=== PATIENT | female | born 1970 | race Two or more races ===

== ENCOUNTER 2018-03-10 12:15 | Outpatient (CLI) | payer BC ==
[2018-03-10 13:18] LABS: BASOPHILS % (AUTO) 0.6 % (0.0-2.0); EOSINOPHILS % (AUTO) 5.4 % (0.0-6.0); HEMATOCRIT 40 % (33-45); HEMOGLOBIN 13.6 g/dL (11.5-14.8); LYMPHOCYTES # (AUTO) 1.3 /CMM (0.8-4.8); LYMPHOCYTES % (AUTO) 27.9 % (20.0-44.0); MEAN CORPUSCULAR HGB CONC 34 g/dl (31.0-36.0); MEAN CORPUSCULAR VOLUME 86 fL (82-100); MONOCYTES # (AUTO) 0.2 /CMM (0.1-1.30); MONOCYTES % (AUTO) 3.3 % (2.0-12.0); NEUTROPHILS % (AUTO) 62.8 % (43.0-81.0); PLATELET COUNT (AUTO) 323 /CMM (150-450); RDW COEFFICIENT OF VARIATION 13.2 (11.5-15.0); RED BLOOD CELL COUNT(AUTO) 4.69 MIL/uL (4.0-5.2); WHITE BLOOD COUNT (AUTO) 4.8 K/uL (4.3-11.0)
[2018-03-10 13:36] LABS: ALBUMIN 3.6 g/dL (3.4-5.0); BILIRUBIN,TOTAL 0.6 mg/dL (0.2-1.0); CALCIUM, SERUM 8.7 mg/dL (8.5-10.1); CREATININE 0.7 mg/dL (0.6-1.3); POTASSIUM 3.8 mmol/L (3.5-5.1); TOTAL PROTEIN, SERUM 7.6 g/dL (6.4-8.2)
[2018-03-10 13:46] LABS: THYROID STIMULATING HORMONE 1.575 uIU/mL (0.358-3.74)
[2018-03-10 13:50] LABS: APPEARANCE,URINE CLEAR (CLEAR); BILIRUBIN,URINE NEGATIVE (NEGATIVE); BLOOD, URINE 2+ Ery/uL (NEGATIVE); COLOR,URINE YELLOW (YELLOW); KETONES,URINE NEGATIVE (NEGATIVE); LEUKOCYTE ESTERASE ,URINE NEGATIVE (NEGATIVE); NITRITE, URINE NEGATIVE (NEGATIVE); PROTEIN,URINE NEGATIVE (NEGATIVE); UGLUCOSE NEGATIVE (NEGATIVE); UROBILINOGEN,URINE 0.2 EU/dL (0.2)
[2018-03-10 14:46] LABS: BACTERIA,URINE Few /HPF (None Seen); SQUAMOUS EPITHELIAL CELL,UR Few /HPF (None Seen); WBC,URINE 0-2 /HPF (0-3)
== END 2018-03-10 23:59 | disposition home or self-care (01) ==
LOC: LAB 12:15
PROVIDERS: ATTEND Legal Medicine
DX: Z00.01 Encounter for general adult medical examination with abnormal findings (principal); E78.5 Hyperlipidemia, unspecified; R79.89 Other specified abnormal findings of blood chemistry
CPT/HCPCS: 36415; 80053-TC; 80061-TC; 81000-TC; 82306; 82728-TC; 82746; 83540-TC; 84443-TC; 85025-TC

== ENCOUNTER 2019-01-11 14:41 | Outpatient (CLI) | payer BC ==
[2019-01-14 19:06] LABS: IMMUNOGLOBULIN E,TOTAL 86 IU/mL (0-100)
== END 2019-01-11 23:59 | disposition home or self-care (01) ==
LOC: LAB 14:41
PROVIDERS: ATTEND Legal Medicine
DX: R22.1 Localized swelling, mass and lump, neck (principal); R06.02 Shortness of breath; J30.9 Allergic rhinitis, unspecified; J34.2 Deviated nasal septum; M41.84 Other forms of scoliosis, thoracic region
CPT/HCPCS: 36415; 70490-TC; 71046; 82785; 86003

== ENCOUNTER 2019-03-05 07:20 | Outpatient (CLI) | payer BC ==
[2019-03-05 07:52] LABS: APPEARANCE,URINE CLEAR (CLEAR); BILIRUBIN,URINE NEGATIVE (NEGATIVE); BLOOD, URINE 3+ Ery/uL (NEGATIVE); COLOR,URINE YELLOW (YELLOW); KETONES,URINE NEGATIVE (NEGATIVE); LEUKOCYTE ESTERASE ,URINE TRACE (NEGATIVE); NITRITE, URINE NEGATIVE (NEGATIVE); PH,URINE 5.5 (5.0-8.0); PROTEIN,URINE NEGATIVE (NEGATIVE); UGLUCOSE NEGATIVE (NEGATIVE); UROBILINOGEN,URINE 0.2 EU/dL (0.2)
[2019-03-05 07:58] LABS: BACTERIA,URINE 1+ /HPF (None Seen); MUCUS,URINE Few /LPF (None Seen); URINE AMORPHOUS URATE Few /HPF (None Seen)
[2019-03-05 08:10] LABS: BASOPHILS # (AUTO) 0.1 /CMM (0.0-0.2); BASOPHILS % (AUTO) 0.9 % (0.0-2.0); EOSINOPHILS % (AUTO) 5.6 % (0.0-6.0); HEMATOCRIT 42 % (33-45); LYMPHOCYTES # (AUTO) 2.5 /CMM (0.8-4.8); LYMPHOCYTES % (AUTO) 32.1 % (20.0-44.0); MEAN CORPUSCULAR HGB CONC 33 g/dl (31.0-36.0); MEAN CORPUSCULAR VOLUME 89 fL (82-100); MONOCYTES # (AUTO) 0.4 /CMM (0.1-1.30); MONOCYTES % (AUTO) 4.7 % (2.0-12.0); NEUTROPHILS # (AUTO) 4.5 /CMM (1.8-8.9); NEUTROPHILS % (AUTO) 56.7 % (43.0-81.0); PLATELET COUNT (AUTO) 279 /CMM (150-450); RED BLOOD CELL COUNT(AUTO) 4.78 MIL/uL (4.0-5.2); WHITE BLOOD COUNT (AUTO) 7.9 K/uL (4.3-11.0)
[2019-03-05 08:19] LABS: ALANINE AMINOTRANSFERASE 23 U/L (12-78); ALKALINE PHOSPHATASE 82 U/L (46-116); ASPARTATE AMINOTRANSFERASE 20 U/L (15-37); BILIRUBIN,TOTAL 0.4 mg/dL (0.2-1.0); CALCIUM, SERUM 9.2 mg/dL (8.5-10.1); CARBON DIOXIDE 26 mmol/L (21-32); CHLORIDE 103 mmol/L (98-107); CREATININE 0.6 mg/dL (0.6-1.3); GLUCOSE 93 mg/dL (74-106); SODIUM SERUM 139 mmol/L (136-145); UREA NITROGEN, BLOOD 19 mg/dL (7-18)
[2019-03-05 08:32] LABS: CHOLESTEROL 237 mg/dL (<200); FERRITIN 9 ng/mL (8-388); HDL CHOLESTEROL 64 mg/dL (40-60); LDL 166 mg/dL (0-99); THYROID STIMULATING HORMONE 3.127 uIU/mL (0.358-3.74); TRIGLYCERIDES 90 mg/dL (30-150)
[2019-03-05 08:37] LABS: C-REACTIVE PROTEIN < 0.2 mg/dL (0.0-0.9)
[2019-03-05 10:56] LABS: IRON, SERUM 61 ug/dl (50-175); TOTAL IRON BINDING CAPACITY 370 ug/dl (250-450)
[2019-03-06 08:12] LABS: FOLIC ACID 15.3 ng/mL (>3.0)
[2019-03-07 15:08] LABS: *ANA ANTI-CENTROMERE B AB <0.2 AI (0.0-0.9); *ANA ANTI-DNA(DS) AB, QN 1 IU/mL (0-9); *ANA ANTI-JO-1 <0.2 AI (0.0-0.9); *ANA ANTICHROMATIN ANTIBODY <0.2 AI (0.0-0.9); *ANA RNP ANTIBODIES 0.2 AI (0.0-0.9); *ANA SJOGREN'S ANTI-SS-A <0.2 AI (0.0-0.9); *ANA SJOGREN'S ANTI-SS-B <0.2 AI (0.0-0.9); *ANAANTI-SCLERODERMA-70 AB <0.2 AI (0.0-0.9); *ANASMITH AB <0.2 AI (0.0-0.9)
[2019-03-08 19:09] LABS: CCP IgG/IgA AB 6 units (0-19)
== END 2019-03-05 23:59 | disposition home or self-care (01) ==
LOC: LAB 07:20
PROVIDERS: ATTEND Legal Medicine
DX: Z00.00 Encounter for general adult medical examination without abnormal findings (principal)
CPT/HCPCS: 36415; 80053-TC; 80061-TC; 81000-TC; 82306; 82728-TC; 83540-TC; 84439-TC; 84443-TC; 85025-TC; 85652-TC; 86140-TC; 86200; 86225; 86235; 86431-TC; 87086-TC

== ENCOUNTER → 2020-04-26 | Outpatient (CLI) | payer OTHER | END | disposition home or self-care (01) | LOC: LAB 03:45 | DX: Z03.818 Encounter for observation for suspected exposure to other biological agents ruled out (principal) | CPT/HCPCS: U0003-CS ==

== ENCOUNTER 2020-05-22 20:54 | Emergency (ER) | payer OTHER ==
[~2020-05-22] VITALS: Ht 165.1 cm; Wt 68.0 kg
[2020-05-22 20:56] VITALS: BP 139/78
--- NOTE | 2020-05-22 21:36 | NUR ---
COVID TEST SENT TO LAB
== END 2020-05-22 21:38 | disposition home or self-care (01) ==
LOC: ER 20:54
DX: Z03.818 Encounter for observation for suspected exposure to other biological agents ruled out (principal)
CPT/HCPCS: 99283; C9803; U0003

== ENCOUNTER 2020-05-30 03:14 | Emergency (ER) | payer OTHER ==
[~2020-05-30] VITALS: Ht 165.1 cm; Wt 68.0 kg
[2020-05-30 03:20] VITALS: BP 137/84
--- NOTE | 2020-05-30 03:30 | NUR ---
COVID SWAB COLLECTED AND SENT TO LAB
== END 2020-05-30 03:32 | disposition home or self-care (01) ==
LOC: ER 03:31
DX: Z11.59 Encounter for screening for other viral diseases (principal)
CPT/HCPCS: 99283; C9803; U0003

== ENCOUNTER 2020-06-20 03:55 | Emergency (ER) | payer OTHER ==
[~2020-06-20] VITALS: Ht 165.1 cm; Wt 68.0 kg
[2020-06-20 03:55] VITALS: BP 132/65
--- NOTE | 2020-06-20 04:53 | NUR ---
covid swab sent to lab
== END 2020-06-20 04:59 | disposition home or self-care (01) ==
LOC: ER 03:56
DX: Z03.818 Encounter for observation for suspected exposure to other biological agents ruled out (principal)
CPT/HCPCS: 99283; C9803; U0003

== ENCOUNTER 2020-06-28 03:25 | Emergency (ER) | payer OTHER ==
[~2020-06-28] VITALS: Ht 165.1 cm; Wt 68.0 kg
[2020-06-28 03:27] VITALS: BP 124/62
--- NOTE | 2020-06-28 03:48 | NUR ---
COVID SWAB COLLECTED. SENT TO LAB
== END 2020-06-28 03:51 | disposition home or self-care (01) ==
LOC: ER 03:31
DX: Z11.59 Encounter for screening for other viral diseases (principal)
CPT/HCPCS: 99283; C9803; U0003

== ENCOUNTER 2020-07-04 04:18 | Emergency (ER) | payer OTHER ==
--- NOTE | 2020-07-04 04:34 | NUR ---
COVID SWAB COLLECTED AND SENT TO LAB
== END 2020-07-04 04:34 | disposition home or self-care (01) ==
LOC: ER 04:18
DX: Z11.59 Encounter for screening for other viral diseases (principal)
CPT/HCPCS: 99283; C9803; U0003

== ENCOUNTER 2020-07-11 04:01 | Emergency (ER) | payer OTHER ==
[~2020-07-11] VITALS: Ht 165.1 cm; Wt 68.0 kg
[2020-07-11 04:06] VITALS: BP 137/63
--- NOTE | 2020-07-11 04:14 | NUR ---
COVID SWAB SAMPLE COLLECTED AND SENT TO THE LAB.
== END 2020-07-11 04:17 | disposition home or self-care (01) ==
LOC: ER 04:08
DX: Z20.828 Contact with and (suspected) exposure to other viral communicable diseases (principal)

== ENCOUNTER 2020-07-18 03:56 | Emergency (ER) | payer OTHER ==
[~2020-07-18] VITALS: Ht 165.1 cm; Wt 68.0 kg
[2020-07-18 04:00] VITALS: BP 124/73
--- NOTE | 2020-07-18 04:03 | NUR ---
Patient discharged to home in stable condition. Written and verbal after care instructions given. Patient verbalizes understanding of instruction.
--- NOTE | 2020-07-19 06:40 | NUR ---
LAB CALLED REGARDING NEGATIVE COVID RESULT
== END 2020-07-18 04:10 | disposition home or self-care (01) ==
LOC: ER 03:57
DX: Z20.828 Contact with and (suspected) exposure to other viral communicable diseases (principal)
CPT/HCPCS: 99283; C9803; U0003

== ENCOUNTER 2020-07-25 03:49 | Emergency (ER) | payer OTHER ==
[~2020-07-25] VITALS: Ht 165.1 cm; Wt 68.0 kg
[2020-07-25 03:53] VITALS: BP 139/70
--- NOTE | 2020-07-25 04:00 | NUR ---
COVID SWAB DONE AND SENT TO LAB
== END 2020-07-25 04:04 | disposition home or self-care (01) ==
LOC: ER 03:49
DX: Z20.828 Contact with and (suspected) exposure to other viral communicable diseases (principal)
CPT/HCPCS: 99283; C9803; U0003

== ENCOUNTER 2020-08-01 04:04 | Emergency (ER) | payer OTHER ==
[~2020-08-01] VITALS: Ht 165.1 cm; Wt 68.0 kg
[2020-08-01 04:06] VITALS: BP 137/76
--- NOTE | 2020-08-01 04:22 | NUR ---
[facility] SWABBED AND SENT
== END 2020-08-01 04:22 | disposition home or self-care (01) ==
LOC: ER 04:07
DX: Z20.828 Contact with and (suspected) exposure to other viral communicable diseases (principal)
CPT/HCPCS: 99283; C9803; U0003

== ENCOUNTER 2020-08-08 03:47 | Emergency (ER) | payer OTHER ==
[~2020-08-08] VITALS: Ht 165.1 cm; Wt 68.0 kg
[2020-08-08 03:48] VITALS: BP 132/64
--- NOTE | 2020-08-08 03:59 | NUR ---
COVID SWAB DONE AND SENT TO LAB.
== END 2020-08-08 03:59 | disposition home or self-care (01) ==
LOC: ER 03:50
DX: Z20.828 Contact with and (suspected) exposure to other viral communicable diseases (principal)
CPT/HCPCS: 99283; C9803; U0003

== ENCOUNTER 2020-08-11 14:09 | Outpatient (CLI) | payer BC | END 2020-08-11 23:59 | disposition home or self-care (01) | LOC: RAD 14:09 | PROVIDERS: ATTEND Legal Medicine | DX: R06.02 Shortness of breath (principal); M41.84 Other forms of scoliosis, thoracic region | CPT/HCPCS: 71046 ==

== ENCOUNTER 2020-08-12 07:18 | Outpatient (CLI) | payer BC ==
[2020-08-12 08:58] LABS: IRON, SERUM 50 ug/dl (50-175); TOTAL IRON BINDING CAPACITY 326 ug/dl (250-450)
[2020-08-12 09:01] LABS: APPEARANCE,URINE SL CLOUDY (CLEAR); BILIRUBIN,URINE NEGATIVE (NEGATIVE); BLOOD, URINE LARGE Ery/uL (NEGATIVE); COLOR,URINE YELLOW (YELLOW); KETONES,URINE NEGATIVE (NEGATIVE); LEUKOCYTE ESTERASE ,URINE TRACE (NEGATIVE); NITRITE, URINE NEGATIVE (NEGATIVE); PH,URINE 5.5 (5.0-8.0); PROTEIN,URINE TRACE mg/dl (NEGATIVE); UGLUCOSE NEGATIVE (NEGATIVE); UROBILINOGEN,URINE 0.2 EU/dL (0.2)
[2020-08-12 09:03] LABS: BASOPHILS % (AUTO) 0.8 % (0.0-2.0); EOSINOPHILS % (AUTO) 6.3 % (0.0-6.0); HEMATOCRIT 40 % (33-45); LYMPHOCYTES # (AUTO) 1.7 /CMM (0.8-4.8); LYMPHOCYTES % (AUTO) 34.4 % (20.0-44.0); MEAN CORPUSCULAR HGB CONC 32 g/dl (31.0-36.0); MEAN CORPUSCULAR VOLUME 89 fL (82-100); MONOCYTES # (AUTO) 0.2 /CMM (0.1-1.30); MONOCYTES % (AUTO) 4.7 % (2.0-12.0); NEUTROPHILS # (AUTO) 2.7 /CMM (1.8-8.9); NEUTROPHILS % (AUTO) 53.8 % (43.0-81.0); PLATELET COUNT (AUTO) 315 /CMM (150-450)
[2020-08-12 09:12] LABS: CHOLESTEROL 220 mg/dL (<200); FERRITIN 9 ng/mL (8-388); HDL CHOLESTEROL 55 mg/dL (40-60); LDL 145 mg/dL (0-99); THYROID STIMULATING HORMONE 3.562 uIU/mL (0.358-3.74); TRIGLYCERIDES 131 mg/dL (30-150); URIC ACID 4.9 mg/dL (2.6-7.2)
[2020-08-12 09:42] LABS: BACTERIA,URINE None seen /HPF (None Seen); SQUAMOUS EPITHELIAL CELL,UR Few /HPF (None Seen)
[2020-08-12 09:57] LABS: ALANINE AMINOTRANSFERASE 17 U/L (12-78); ALBUMIN 3.5 g/dL (3.4-5.0); ALKALINE PHOSPHATASE 76 U/L (46-116); ASPARTATE AMINOTRANSFERASE 14 U/L (15-37); BILIRUBIN,TOTAL 0.2 mg/dL (0.2-1.0); CALCIUM, SERUM 8.1 mg/dL (8.5-10.1); CARBON DIOXIDE 25 mmol/L (21-32); CHLORIDE 103 mmol/L (98-107); CREATININE 0.8 mg/dL (0.6-1.3); GLUCOSE 100 mg/dL (74-106); POTASSIUM 3.7 mmol/L (3.5-5.1); SODIUM SERUM 140 mmol/L (136-145); TOTAL PROTEIN, SERUM 7.4 g/dL (6.4-8.2); UREA NITROGEN, BLOOD 14 mg/dL (7-18)
[2020-08-12 10:21] LABS: B-TYPE NATRIURETIC PEPTIDE 48 PG/ML (0-125)
[2020-08-13 08:06] LABS: FOLIC ACID > 20.0 ng/mL (>3.0)
== END 2020-08-12 23:59 | disposition home or self-care (01) ==
LOC: CARD 07:18
PROVIDERS: ATTEND Legal Medicine
DX: I34.0 Nonrheumatic mitral (valve) insufficiency (principal); I12.9 Hypertensive chronic kidney disease with stage 1 through stage 4 chronic kidney disease, or unspecified chronic kidney disease; E11.22 Type 2 diabetes mellitus with diabetic chronic kidney disease; N18.9 Chronic kidney disease, unspecified; E03.9 Hypothyroidism, unspecified; D64.9 Anemia, unspecified; E55.9 Vitamin D deficiency, unspecified; R53.1 Weakness; Z00.00 Encounter for general adult medical examination without abnormal findings
CPT/HCPCS: 36415; 80053-TC; 80061-TC; 81000-TC; 82306; 82728-TC; 83540-TC; 83880; 84439-TC; 84443-TC; 84484-TC; 84550-TC; 85025-TC; 93307-TC

== ENCOUNTER 2020-08-21 03:56 | Emergency (ER) | payer BC, OTHER ==
[~2020-08-21] VITALS: Ht 165.1 cm; Wt 68.0 kg
[2020-08-21 03:58] VITALS: BP 129/76
== END 2020-08-21 04:26 | disposition home or self-care (01) ==
LOC: ER 03:59
DX: Z20.828 Contact with and (suspected) exposure to other viral communicable diseases (principal)
CPT/HCPCS: C9803-CS; U0003-CS

== ENCOUNTER 2020-08-29 04:20 | Emergency (ER) | payer OTHER, BC ==
[~2020-08-29] VITALS: Ht 165.1 cm; Wt 68.0 kg
[2020-08-29 04:24] VITALS: BP 132/61
--- NOTE | 2020-08-30 02:32 | NUR ---
LAB CALLED REGARDING NEGATIVE COVID RESULT.
== END 2020-08-29 04:42 | disposition home or self-care (01) ==
LOC: ER 04:28
DX: Z20.828 Contact with and (suspected) exposure to other viral communicable diseases (principal)
CPT/HCPCS: 99283; C9803; U0003

== ENCOUNTER 2020-09-01 11:02 | Outpatient (CLI) | payer BC | END 2020-09-01 23:59 | disposition home or self-care (01) | LOC: US 11:02 | PROVIDERS: ATTEND Legal Medicine | DX: E04.2 Nontoxic multinodular goiter (principal) | CPT/HCPCS: 76536-TC ==

== ENCOUNTER 2020-09-02 14:00 | Outpatient (CLI) | payer BC | END 2020-09-02 23:59 | disposition home or self-care (01) | LOC: WOU 14:00 | PROVIDERS: ATTEND Podiatrist Foot & Ankle Surgery | DX: M76.62 Achilles tendinitis, left leg (principal); M76.61 Achilles tendinitis, right leg; M77.32 Calcaneal spur, left foot; M77.31 Calcaneal spur, right foot; M89.372 Hypertrophy of bone, left ankle and foot; M89.371 Hypertrophy of bone, right ankle and foot | CPT/HCPCS: 73630-TC; G0463 ==

== ENCOUNTER 2020-09-02 15:24 | Outpatient (CLI) | payer BC | END 2020-09-02 23:59 | disposition home or self-care (01) | LOC: RAD 15:24 | DX: Z75.3 Unavailability and inaccessibility of health-care facilities (principal) ==

== ENCOUNTER 2020-09-04 01:35 | Emergency (ER) | payer BC, OTHER ==
[~2020-09-04] VITALS: Ht 165.1 cm; Wt 68.0 kg
[2020-09-04 01:36] VITALS: BP 134/61
== END 2020-09-04 02:00 | disposition home or self-care (01) ==
LOC: ER 01:35
DX: Z20.828 Contact with and (suspected) exposure to other viral communicable diseases (principal)
CPT/HCPCS: 99283; C9803; U0003

== ENCOUNTER 2020-09-11 04:19 | Emergency (ER) | payer OTHER ==
[~2020-09-11] VITALS: Ht 165.1 cm; Wt 68.0 kg
[2020-09-11 04:20] VITALS: BP 132/64
== END 2020-09-11 04:53 | disposition home or self-care (01) ==
LOC: ER 04:19
DX: Z20.828 Contact with and (suspected) exposure to other viral communicable diseases (principal)
CPT/HCPCS: 99283; C9803; U0003

== ENCOUNTER 2020-09-18 04:31 | Emergency (ER) | payer OTHER ==
[~2020-09-18] VITALS: Ht 165.1 cm; Wt 68.0 kg
[2020-09-18 04:32] VITALS: BP 128/77
== END 2020-09-18 04:43 | disposition home or self-care (01) ==
LOC: ER 04:33
DX: Z20.828 Contact with and (suspected) exposure to other viral communicable diseases (principal)
CPT/HCPCS: 99283; C9803; U0003

== ENCOUNTER 2020-09-25 05:20 | Emergency (ER) | payer OTHER ==
[~2020-09-25] VITALS: Ht 165.1 cm; Wt 68.0 kg
[2020-09-25 05:22] VITALS: BP 132/84
== END 2020-09-25 05:40 | disposition home or self-care (01) ==
LOC: ER 05:24
DX: Z20.828 Contact with and (suspected) exposure to other viral communicable diseases (principal)
CPT/HCPCS: 99283; C9803; U0003

== ENCOUNTER 2020-10-02 04:44 | Emergency (ER) | payer OTHER ==
[~2020-10-02] VITALS: Ht 165.1 cm; Wt 68.0 kg
[2020-10-02 04:45] VITALS: BP 128/64
== END 2020-10-02 05:09 | disposition home or self-care (01) ==
LOC: ER 04:44
DX: Z20.828 Contact with and (suspected) exposure to other viral communicable diseases (principal)
CPT/HCPCS: 99283; C9803; U0003

== ENCOUNTER 2020-10-23 04:51 | Emergency (ER) | payer OTHER ==
[~2020-10-23] VITALS: Ht 165.1 cm; Wt 68.0 kg
[2020-10-23 04:56] VITALS: BP 119/65
== END 2020-10-23 05:07 | disposition home or self-care (01) ==
LOC: ER 04:51
DX: Z20.828 Contact with and (suspected) exposure to other viral communicable diseases (principal)
CPT/HCPCS: 99283; C9803; U0003

== ENCOUNTER 2020-10-30 04:38 | Emergency (ER) | payer OTHER ==
[~2020-10-30] VITALS: Ht 165.1 cm; Wt 68.0 kg
[2020-10-30 04:39] VITALS: BP 139/84
== END 2020-10-30 04:48 | disposition home or self-care (01) ==
LOC: ER 04:38
DX: Z20.828 Contact with and (suspected) exposure to other viral communicable diseases (principal)
CPT/HCPCS: 99283; C9803; U0003

== ENCOUNTER 2020-11-03 02:38 | Emergency (ER) | payer OTHER ==
[~2020-11-03] VITALS: Ht 165.1 cm; Wt 68.0 kg
[2020-11-03 02:40] VITALS: BP 122/85
== END 2020-11-03 02:53 | disposition home or self-care (01) ==
LOC: ER 02:38
DX: Z20.828 Contact with and (suspected) exposure to other viral communicable diseases (principal)
CPT/HCPCS: 99283; C9803; U0003

== ENCOUNTER 2020-11-07 03:33 | Emergency (ER) | payer OTHER ==
[~2020-11-07] VITALS: Ht 165.1 cm; Wt 68.0 kg
[2020-11-07 03:34] VITALS: BP 132/65
== END 2020-11-07 03:55 | disposition home or self-care (01) ==
LOC: ER 03:33
DX: Z20.828 Contact with and (suspected) exposure to other viral communicable diseases (principal)
CPT/HCPCS: 99283; C9803; U0003

== ENCOUNTER 2020-11-15 04:26 | Emergency (ER) | payer OTHER ==
[~2020-11-15] VITALS: Ht 165.1 cm; Wt 56.7 kg
[2020-11-15 04:27] VITALS: BP 132/64
== END 2020-11-15 05:17 | disposition home or self-care (01) ==
LOC: ER 04:28
DX: Z20.828 Contact with and (suspected) exposure to other viral communicable diseases (principal)
CPT/HCPCS: 99283; C9803; U0003

== ENCOUNTER 2020-11-17 04:46 | Emergency (ER) | payer OTHER ==
[~2020-11-17] VITALS: Ht 157.5 cm; Wt 56.7 kg
[2020-11-17 04:48] VITALS: BP 128/68
== END 2020-11-17 05:12 | disposition home or self-care (01) ==
LOC: ER 04:49
DX: Z20.828 Contact with and (suspected) exposure to other viral communicable diseases (principal)
CPT/HCPCS: 99283; C9803; U0003

== ENCOUNTER 2020-11-20 03:59 | Emergency (ER) | payer OTHER ==
[~2020-11-20] VITALS: Ht 157.5 cm; Wt 56.7 kg
[2020-11-20 04:04] VITALS: BP 148/86
== END 2020-11-20 04:35 | disposition home or self-care (01) ==
LOC: ER 04:04
DX: Z20.828 Contact with and (suspected) exposure to other viral communicable diseases (principal)
CPT/HCPCS: 87426; 99283; C9803; U0003

== ENCOUNTER 2020-11-26 00:03 | Emergency (ER) | payer OTHER ==
[~2020-11-26] VITALS: Ht 165.1 cm; Wt 65.8 kg
[2020-11-26 00:14] VITALS: BP 126/68
--- NOTE | 2020-11-27 02:04 | NUR ---
LAB CALLED REGARDING NEGATIVE COVID RESULT.
== END 2020-11-26 00:35 | disposition home or self-care (01) ==
LOC: ER 00:10
DX: Z20.828 Contact with and (suspected) exposure to other viral communicable diseases (principal)
CPT/HCPCS: 99283; C9803; U0003

== ENCOUNTER 2020-11-29 03:22 | Emergency (ER) | payer OTHER ==
[~2020-11-29] VITALS: Ht 167.6 cm; Wt 61.2 kg
[2020-11-29 03:24] VITALS: BP 134/65
== END 2020-11-29 03:49 | disposition home or self-care (01) ==
LOC: ER 03:25
DX: Z20.828 Contact with and (suspected) exposure to other viral communicable diseases (principal)
CPT/HCPCS: 99283; C9803; U0003

== ENCOUNTER 2020-12-04 02:38 | Emergency (ER) | payer OTHER ==
[~2020-12-04] VITALS: Ht 167.6 cm; Wt 61.2 kg
[2020-12-04 02:42] VITALS: BP 118/68
== END 2020-12-04 02:50 | disposition home or self-care (01) ==
LOC: ER 02:38
DX: Z20.822 Contact with and (suspected) exposure to COVID-19 (principal)
CPT/HCPCS: 99283; C9803; U0003

== ENCOUNTER 2020-12-06 04:38 | Emergency (ER) | payer OTHER ==
[~2020-12-06] VITALS: Ht 167.6 cm; Wt 61.2 kg
[2020-12-06 04:40] VITALS: BP 132/67
== END 2020-12-06 05:45 | disposition home or self-care (01) ==
LOC: ER 04:38
DX: Z20.822 Contact with and (suspected) exposure to COVID-19 (principal)
CPT/HCPCS: 99283; C9803; U0003

== ENCOUNTER 2020-12-11 13:39 | Emergency (ER) | payer OTHER ==
[~2020-12-11] VITALS: Ht 165.1 cm; Wt 68.0 kg
[2020-12-11 13:44] VITALS: BP 123/81
== END 2020-12-11 14:50 | disposition home or self-care (01) ==
LOC: ER 13:42
DX: M79.10 Myalgia, unspecified site (principal); R53.83 Other fatigue; Z20.822 Contact with and (suspected) exposure to COVID-19
CPT/HCPCS: 99283; C9803; U0003

== ENCOUNTER 2020-12-13 03:52 | Emergency (ER) | payer OTHER ==
[~2020-12-13] VITALS: Ht 165.1 cm; Wt 68.0 kg
[2020-12-13 03:54] VITALS: BP 134/65
== END 2020-12-13 06:12 | disposition home or self-care (01) ==
LOC: ER 03:53
DX: Z20.822 Contact with and (suspected) exposure to COVID-19 (principal)
CPT/HCPCS: 99283; C9803; U0003

== ENCOUNTER 2020-12-15 00:56 | Emergency (ER) | payer OTHER ==
[~2020-12-15] VITALS: Ht 165.1 cm; Wt 61.2 kg
[2020-12-15 00:59] VITALS: BP 131/71
== END 2020-12-15 01:32 | disposition home or self-care (01) ==
LOC: ER 01:08
DX: Z20.822 Contact with and (suspected) exposure to COVID-19 (principal)
CPT/HCPCS: 99283; C9803; U0003

== ENCOUNTER 2020-12-19 04:12 | Emergency (ER) | payer OTHER ==
[~2020-12-19] VITALS: Ht 167.6 cm; Wt 61.2 kg
[2020-12-19 04:14] VITALS: BP 124/64
== END 2020-12-19 05:02 | disposition home or self-care (01) ==
LOC: ER 04:15
DX: Z20.822 Contact with and (suspected) exposure to COVID-19 (principal)
CPT/HCPCS: 99283; C9803; U0003

== ENCOUNTER 2020-12-25 04:09 | Emergency (ER) | payer OTHER ==
[~2020-12-25] VITALS: Ht 162.6 cm; Wt 61.2 kg
[2020-12-25 04:19] VITALS: BP 118/68
== END 2020-12-25 04:55 | disposition home or self-care (01) ==
LOC: ER 04:10
DX: Z20.822 Contact with and (suspected) exposure to COVID-19 (principal)
CPT/HCPCS: 99283; C9803; U0003

== ENCOUNTER 2020-12-27 04:36 | Emergency (ER) | payer OTHER ==
[~2020-12-27] VITALS: Ht 167.6 cm; Wt 68.5 kg
[2020-12-27 04:36] VITALS: BP 119/73
== END 2020-12-27 05:43 | disposition home or self-care (01) ==
LOC: ER 04:38
DX: Z20.822 Contact with and (suspected) exposure to COVID-19 (principal)
CPT/HCPCS: 99283; C9803; U0003

== ENCOUNTER 2020-12-29 01:13 | Emergency (ER) | payer OTHER ==
[~2020-12-29] VITALS: Ht 167.6 cm; Wt 68.5 kg
[2020-12-29 01:14] VITALS: BP 133/76
== END 2020-12-29 01:56 | disposition home or self-care (01) ==
LOC: ER 01:17
DX: Z20.822 Contact with and (suspected) exposure to COVID-19 (principal)
CPT/HCPCS: 99283; C9803; U0003

== ENCOUNTER 2021-01-02 00:27 | Emergency (ER) | payer OTHER ==
[~2021-01-02] VITALS: Ht 165.1 cm; Wt 68.5 kg
[2021-01-02 00:42] VITALS: BP 124/68
== END 2021-01-02 00:46 | disposition home or self-care (01) ==
LOC: ER 00:28
DX: Z20.822 Contact with and (suspected) exposure to COVID-19 (principal)
CPT/HCPCS: 99283; C9803; U0003

== ENCOUNTER 2021-01-08 04:19 | Emergency (ER) | payer OTHER ==
[~2021-01-08] VITALS: Ht 167.6 cm; Wt 56.7 kg
[2021-01-08 04:21] VITALS: BP 122/69
== END 2021-01-08 04:54 | disposition home or self-care (01) ==
LOC: ER 04:19
DX: Z20.822 Contact with and (suspected) exposure to COVID-19 (principal)
CPT/HCPCS: 99283; C9803; U0003

== ENCOUNTER 2021-01-15 03:50 | Emergency (ER) | payer OTHER ==
[~2021-01-15] VITALS: Ht 165.1 cm; Wt 68.5 kg
[2021-01-15 03:52] VITALS: BP 125/85
== END 2021-01-15 04:10 | disposition home or self-care (01) ==
LOC: ER 03:50
DX: Z20.822 Contact with and (suspected) exposure to COVID-19 (principal)
CPT/HCPCS: 99283; C9803; U0003

== ENCOUNTER 2021-01-16 03:16 | Emergency (ER) | payer OTHER ==
[~2021-01-16] VITALS: Ht 167.6 cm; Wt 58.1 kg
[2021-01-16 03:16] VITALS: BP 118/69
== END 2021-01-16 05:20 | disposition home or self-care (01) ==
LOC: ER 03:18
DX: Z20.822 Contact with and (suspected) exposure to COVID-19 (principal)
CPT/HCPCS: 99283; C9803; U0003

== ENCOUNTER 2021-01-22 01:27 | Emergency (ER) | payer OTHER ==
[~2021-01-22] VITALS: Ht 167.6 cm; Wt 58.1 kg
[2021-01-22 01:29] VITALS: BP 122/80
--- NOTE | 2021-01-24 11:48 | NUR ---
RECEIVED RESULT FROM [facility]: COVID PCR NEGATIVE
--- NOTE | 2021-01-24 11:49 | NUR ---
CALLED PHONE NUMBER, NO ANSWER
== END 2021-01-22 01:46 | disposition home or self-care (01) ==
LOC: ER 01:33
DX: Z02.89 Encounter for other administrative examinations (principal); Z20.822 Contact with and (suspected) exposure to COVID-19
CPT/HCPCS: 99283; C9803; U0003

== ENCOUNTER 2021-01-29 02:38 | Emergency (ER) | payer OTHER ==
[~2021-01-29] VITALS: Ht 167.6 cm; Wt 59.0 kg
[2021-01-29 02:39] VITALS: BP 125/64
== END 2021-01-29 03:03 | disposition home or self-care (01) ==
LOC: ER 02:39
DX: Z20.822 Contact with and (suspected) exposure to COVID-19 (principal)
CPT/HCPCS: 99283; C9803; U0003

== ENCOUNTER 2021-02-05 02:38 | Emergency (ER) | payer OTHER ==
[~2021-02-05] VITALS: Ht 167.6 cm; Wt 59.0 kg
[2021-02-05 02:39] VITALS: BP 134/65
== END 2021-02-05 03:11 | disposition home or self-care (01) ==
LOC: ER 02:38
DX: Z20.822 Contact with and (suspected) exposure to COVID-19 (principal)
CPT/HCPCS: 99283; C9803; U0003

== ENCOUNTER 2021-02-12 03:09 | Emergency (ER) | payer OTHER ==
[~2021-02-12] VITALS: Ht 165.1 cm; Wt 72.6 kg
[2021-02-12 03:12] VITALS: BP 128/85
== END 2021-02-12 04:07 | disposition home or self-care (01) ==
LOC: ER 03:09
DX: Z20.822 Contact with and (suspected) exposure to COVID-19 (principal)
CPT/HCPCS: 99283; C9803; U0003

== ENCOUNTER 2021-02-19 03:30 | Emergency (ER) | payer OTHER ==
[~2021-02-19] VITALS: Ht 165.1 cm; Wt 72.6 kg
[2021-02-19 03:33] VITALS: BP 135/64
== END 2021-02-19 04:33 | disposition home or self-care (01) ==
LOC: ER 03:31
DX: Z20.822 Contact with and (suspected) exposure to COVID-19 (principal)
CPT/HCPCS: 99283; C9803; U0003

== ENCOUNTER 2021-02-25 23:07 | Emergency (ER) | payer OTHER ==
[~2021-02-25] VITALS: Ht 165.1 cm; Wt 72.6 kg
[2021-02-25 23:09] VITALS: BP 134/86
--- NOTE | 2021-02-25 23:29 | NUR ---
Patient discharged to home in stable condition. Written and verbal after care instructions given. Patient verbalizes understanding of instruction. Pt ambulatory with a steady gait
--- NOTE | 2021-02-25 23:29 | NUR ---
COVID SWAB DONE AND SENT TO LAB.
== END 2021-02-25 23:30 | disposition home or self-care (01) ==
LOC: ER 23:07
DX: Z20.822 Contact with and (suspected) exposure to COVID-19 (principal); R03.0 Elevated blood-pressure reading, without diagnosis of hypertension
CPT/HCPCS: 99283; C9803; U0003

== ENCOUNTER 2021-03-06 03:02 | Emergency (ER) | payer OTHER ==
[~2021-03-06] VITALS: Ht 165.1 cm; Wt 72.6 kg
[2021-03-06 03:03] VITALS: BP 125/64
== END 2021-03-06 03:14 | disposition home or self-care (01) ==
LOC: ER 03:04
DX: Z20.822 Contact with and (suspected) exposure to COVID-19 (principal)
CPT/HCPCS: 99283; C9803; U0003

== ENCOUNTER 2021-03-09 02:33 | Emergency (ER) | payer OTHER ==
[~2021-03-09] VITALS: Ht 165.1 cm; Wt 72.6 kg
[2021-03-09 02:40] VITALS: BP 124/68
== END 2021-03-09 03:23 | disposition home or self-care (01) ==
LOC: ER 02:37
DX: Z20.822 Contact with and (suspected) exposure to COVID-19 (principal)
CPT/HCPCS: 99283; C9803; U0003

== ENCOUNTER 2021-03-10 11:03 | Outpatient (CLI) | payer BC | END 2021-03-10 23:59 | disposition home or self-care (01) | LOC: US 11:03 | PROVIDERS: ATTEND Legal Medicine | DX: E04.2 Nontoxic multinodular goiter (principal) | CPT/HCPCS: 76536-TC ==

== ENCOUNTER 2021-03-19 02:39 | Emergency (ER) | payer BC, OTHER ==
[~2021-03-19] VITALS: Ht 165.1 cm; Wt 64.4 kg
[2021-03-19 02:40] VITALS: BP 118/68
== END 2021-03-19 03:32 | disposition home or self-care (01) ==
LOC: ER 02:39
DX: Z20.822 Contact with and (suspected) exposure to COVID-19 (principal)
CPT/HCPCS: 99283; C9803; U0003

== ENCOUNTER 2021-03-26 02:53 | Emergency (ER) | payer OTHER ==
[~2021-03-26] VITALS: Ht 165.1 cm; Wt 64.4 kg
[2021-03-26 02:54] VITALS: BP 131/76
== END 2021-03-26 03:44 | disposition home or self-care (01) ==
LOC: ER 02:56
DX: Z20.822 Contact with and (suspected) exposure to COVID-19 (principal)
CPT/HCPCS: 99283; C9803; U0003

== ENCOUNTER 2021-04-03 02:53 | Emergency (ER) | payer OTHER ==
[~2021-04-03] VITALS: Ht 165.1 cm; Wt 64.4 kg
[2021-04-03 02:56] VITALS: BP 137/84
== END 2021-04-03 04:02 | disposition home or self-care (01) ==
LOC: ER 02:56
DX: Z20.822 Contact with and (suspected) exposure to COVID-19 (principal)
CPT/HCPCS: 99283; C9803; U0003

== ENCOUNTER 2021-04-05 23:45 | Emergency (ER) | payer OTHER ==
[~2021-04-05] VITALS: Ht 165.1 cm; Wt 64.4 kg
[2021-04-05 23:55] VITALS: BP 128/84
== END 2021-04-06 00:38 | disposition home or self-care (01) ==
LOC: ER 23:50
DX: Z20.822 Contact with and (suspected) exposure to COVID-19 (principal)
CPT/HCPCS: 99283; C9803; U0003

== ENCOUNTER 2021-04-16 03:08 | Emergency (ER) | payer OTHER ==
[~2021-04-16] VITALS: Ht 165.1 cm; Wt 64.4 kg
[2021-04-16 03:10] VITALS: BP 141/88
== END 2021-04-16 04:38 | disposition home or self-care (01) ==
LOC: ER 03:08
DX: Z20.822 Contact with and (suspected) exposure to COVID-19 (principal)
CPT/HCPCS: 99283; C9803; U0003

== ENCOUNTER 2021-04-24 02:36 | Emergency (ER) | payer OTHER ==
[~2021-04-24] VITALS: Ht 165.1 cm; Wt 65.8 kg
[2021-04-24 02:39] VITALS: BP 135/67
== END 2021-04-24 03:12 | disposition home or self-care (01) ==
LOC: ER 02:37
DX: Z20.822 Contact with and (suspected) exposure to COVID-19 (principal)
CPT/HCPCS: 99283; C9803; U0003

== ENCOUNTER 2021-04-30 03:26 | Emergency (ER) | payer OTHER ==
[~2021-04-30] VITALS: Ht 165.1 cm; Wt 65.8 kg
[2021-04-30 03:33] VITALS: BP 124/75
== END 2021-04-30 05:01 | disposition home or self-care (01) ==
LOC: ER 03:26
DX: Z20.822 Contact with and (suspected) exposure to COVID-19 (principal)
CPT/HCPCS: 99283; C9803; U0003

== ENCOUNTER 2021-05-08 03:01 | Emergency (ER) | payer OTHER ==
[~2021-05-08] VITALS: Ht 165.1 cm; Wt 65.8 kg
[2021-05-08 03:04] VITALS: BP 135/69
== END 2021-05-08 03:07 | disposition home or self-care (01) ==
LOC: ER 03:04
DX: Z20.822 Contact with and (suspected) exposure to COVID-19 (principal)
CPT/HCPCS: 99283; C9803; U0003

== ENCOUNTER 2021-05-14 04:09 | Emergency (ER) | payer OTHER ==
[~2021-05-14] VITALS: Ht 165.1 cm; Wt 65.8 kg
[2021-05-14 04:10] VITALS: BP 129/68
== END 2021-05-14 05:00 | disposition home or self-care (01) ==
LOC: ER 04:09
DX: Z20.822 Contact with and (suspected) exposure to COVID-19 (principal)
CPT/HCPCS: 99283; C9803; U0003

== ENCOUNTER 2021-05-21 04:20 | Emergency (ER) | payer OTHER ==
[~2021-05-21] VITALS: Ht 165.1 cm; Wt 65.8 kg
[2021-05-21 04:22] VITALS: BP 131/65
== END 2021-05-21 05:35 | disposition home or self-care (01) ==
LOC: ER 04:20
DX: Z20.822 Contact with and (suspected) exposure to COVID-19 (principal)
CPT/HCPCS: 99283; C9803; U0003

== ENCOUNTER 2021-07-16 22:43 | Emergency (ER) | payer OTHER ==
[~2021-07-16] VITALS: Ht 165.1 cm; Wt 65.8 kg
[2021-07-16 22:47] VITALS: BP 120/68
== END 2021-07-17 00:04 | disposition home or self-care (01) ==
LOC: ER 22:53
DX: Z20.822 Contact with and (suspected) exposure to COVID-19 (principal)
CPT/HCPCS: 99283; C9803; U0003

== ENCOUNTER 2022-01-19 10:54 | Outpatient (CLI) | payer BC ==
[2022-01-19 13:05] LABS: BASOPHILS % (AUTO) 0.6 % (0.0-2.0); EOSINOPHILS % (AUTO) 5.8 % (0.0-6.0); HEMATOCRIT 43 % (33-45); HEMOGLOBIN 13.9 g/dL (11.5-14.8); LYMPHOCYTES # (AUTO) 1.4 K/uL (0.8-4.8); LYMPHOCYTES % (AUTO) 27.6 % (20.0-44.0); MEAN CORPUSCULAR HGB CONC 33 g/dl (31.0-36.0); MEAN CORPUSCULAR VOLUME 89 fL (82-100); MONOCYTES # (AUTO) 0.2 K/uL (0.1-1.30); MONOCYTES % (AUTO) 4.3 % (2.0-12.0); NEUTROPHILS # (AUTO) 3.1 K/uL (1.8-8.9); NEUTROPHILS % (AUTO) 61.7 % (43.0-81.0); PLATELET COUNT (AUTO) 247 K/uL (150-450); RED BLOOD CELL COUNT(AUTO) 4.77 MIL/uL (4.0-5.2)
[2022-01-19 13:45] LABS: ALBUMIN 3.5 g/dL (3.4-5.0); BILIRUBIN,TOTAL 0.4 mg/dL (0.2-1.0); CALCIUM, SERUM 8.8 mg/dL (8.5-10.1); CREATININE 0.7 mg/dL (0.6-1.3); TOTAL PROTEIN, SERUM 7.3 g/dL (6.4-8.2)
[2022-01-19 13:58] LABS: BILIRUBIN,URINE NEGATIVE (NEGATIVE); COLOR,URINE YELLOW (YELLOW); LEUKOCYTE ESTERASE ,URINE NEGATIVE (NEGATIVE); NITRITE, URINE NEGATIVE (NEGATIVE); PROTEIN,URINE NEGATIVE (NEGATIVE); UGLUCOSE NEGATIVE (NEGATIVE); UROBILINOGEN,URINE 0.2 EU/dL (0.2)
[2022-01-19 14:16] LABS: BACTERIA,URINE None seen /HPF (None Seen); SQUAMOUS EPITHELIAL CELL,UR Moderate /HPF (None Seen)
[2022-01-19 14:17] LABS: YEAST,URINE Few /HPF (None Seen)
[2022-01-19 19:31] LABS: URIC ACID 5.8 mg/dL (2.6-7.2)
[2022-01-19 20:04] LABS: THYROID STIMULATING HORMONE 2.681 uIU/mL (0.358-3.74)
[2022-01-20 08:07] LABS: LUTEINIZING HORMONE 6.7 mIU/mL (.); PROLACTIN 7.6 ng/mL (4.8-23.3)
== END 2022-01-19 23:59 | disposition home or self-care (01) ==
LOC: LAB 10:54
PROVIDERS: ATTEND Legal Medicine
DX: E11.9 Type 2 diabetes mellitus without complications (principal); E78.5 Hyperlipidemia, unspecified; E03.9 Hypothyroidism, unspecified; D64.9 Anemia, unspecified; R53.1 Weakness; Z00.00 Encounter for general adult medical examination without abnormal findings
CPT/HCPCS: 36415; 80053-TC; 80061-TC; 81001; 82306; 82607-TC; 83001; 83002; 84146; 84439-TC; 84443-TC; 84550-TC; 85025-TC

== ENCOUNTER 2022-01-26 10:56 | Outpatient (CLI) | payer BC | END 2022-01-26 23:59 | disposition home or self-care (01) | LOC: US 10:56 | PROVIDERS: ATTEND Legal Medicine | DX: E04.2 Nontoxic multinodular goiter (principal) | CPT/HCPCS: 76536-TC ==

== ENCOUNTER 2022-06-05 00:01 | Emergency (ER) | payer OTHER ==
[~2022-06-05] VITALS: Ht 170.2 cm; Wt 63.5 kg
[2022-06-05 00:21] VITALS: BP 145/70
== END 2022-06-05 01:55 | disposition home or self-care (01) ==
LOC: ER 00:03
DX: Z20.822 Contact with and (suspected) exposure to COVID-19 (principal)
CPT/HCPCS: 99283; C9803; U0003

== ENCOUNTER 2023-02-14 11:03 | Outpatient (CLI) | payer BC, OTHER ==
[2023-02-14 12:30] LABS: BILIRUBIN,URINE NEGATIVE (NEGATIVE); COLOR,URINE YELLOW (YELLOW); LEUKOCYTE ESTERASE ,URINE NEGATIVE (NEGATIVE); NITRITE, URINE NEGATIVE (NEGATIVE); PROTEIN,URINE NEGATIVE (NEGATIVE); UGLUCOSE NEGATIVE (NEGATIVE); UROBILINOGEN,URINE 0.2 EU/dL (0.2)
[2023-02-14 12:31] LABS: THYROID STIMULATING HORMONE 2.289 uIU/mL (0.358-3.74); URIC ACID 5.4 mg/dL (2.6-7.2)
[2023-02-14 12:42] LABS: ALBUMIN 3.8 g/dL (3.4-5.0); BASOPHILS % (AUTO) 0.4 % (0.0-2.0); BILIRUBIN,TOTAL 0.4 mg/dL (0.2-1.0); CREATININE 0.7 mg/dL (0.6-1.3); EOSINOPHILS % (AUTO) 7.2 % (0.0-6.0); HEMATOCRIT 44 % (33-45); HEMOGLOBIN 14.2 g/dL (11.5-14.8); LYMPHOCYTES # (AUTO) 1.2 K/uL (0.8-4.8); LYMPHOCYTES % (AUTO) 35.1 % (20.0-44.0); MEAN CORPUSCULAR HGB CONC 32 g/dl (31.0-36.0); MEAN CORPUSCULAR VOLUME 91 fL (82-100); MONOCYTES # (AUTO) 0.1 K/uL (0.1-1.30); MONOCYTES % (AUTO) 4.3 % (2.0-12.0); NEUTROPHILS # (AUTO) 1.9 K/uL (1.8-8.9); PLATELET COUNT (AUTO) 293 K/uL (150-450); POTASSIUM 3.8 mmol/L (3.5-5.1); RED BLOOD CELL COUNT(AUTO) 4.87 MIL/uL (4.0-5.2); TOTAL PROTEIN, SERUM 7.7 g/dL (6.4-8.2); WHITE BLOOD COUNT (AUTO) 3.5 K/uL (4.3-11.0)
[2023-02-14 12:49] LABS: BACTERIA,URINE Few /HPF (None Seen); SQUAMOUS EPITHELIAL CELL,UR Few /HPF (None Seen); YEAST,URINE Rare /HPF (None Seen)
[2023-02-15 08:07] LABS: FOLLICLE STIMULATION HORMONE 38.7 mIU/mL (.); LUTEINIZING HORMONE 27.1 mIU/mL (.)
== END 2023-02-14 23:59 | disposition home or self-care (01) ==
LOC: LAB 11:03
PROVIDERS: ATTEND Legal Medicine
DX: Z00.00 Encounter for general adult medical examination without abnormal findings (principal); R53.1 Weakness; E11.9 Type 2 diabetes mellitus without complications; E55.9 Vitamin D deficiency, unspecified; I10 Essential (primary) hypertension; E78.00 Pure hypercholesterolemia, unspecified
CPT/HCPCS: 36415; 80053-TC; 80061-TC; 81001; 82306; 82607-TC; 82670; 82728-TC; 83001; 83002; 83540-TC; 84403; 84439-TC; 84443-TC; 84550-TC; 85025-TC

== ENCOUNTER 2023-02-28 10:52 | Outpatient (CLI) | payer BC, OTHER | END 2023-02-28 23:59 | disposition home or self-care (01) | LOC: US 10:52 | PROVIDERS: ATTEND Legal Medicine | DX: E04.1 Nontoxic single thyroid nodule (principal) | CPT/HCPCS: 76536-TC ==

== ENCOUNTER 2023-03-21 11:13 | Outpatient (CLI) | payer BC, OTHER | END 2023-03-21 23:59 | disposition home or self-care (01) | LOC: LAB 11:13 | PROVIDERS: ATTEND Legal Medicine | DX: Z01.818 Encounter for other preprocedural examination (principal) | CPT/HCPCS: 36415; 85610-TC ==

== ENCOUNTER 2023-03-22 12:51 | Outpatient (CLI) | payer BC, OTHER | END 2023-03-22 23:59 | disposition home or self-care (01) | LOC: US 12:51 | PROVIDERS: ATTEND Legal Medicine | DX: E04.1 Nontoxic single thyroid nodule (principal) ==

== ENCOUNTER 2024-07-07 05:08 | Emergency (ER) | payer BC, OTHER ==
[~2024-07-07] VITALS: Ht 162.6 cm; Wt 74.8 kg
[2024-07-07 05:13] VITALS: TEMP 98.3
[2024-07-07 05:16] VITALS: BP 134/70; O2SAT 99
== END 2024-07-07 07:01 | disposition home or self-care (01) ==
LOC: EDUNIT# 05:08 → ER 05:10
DX: M25.561 Pain in right knee (principal)
CPT/HCPCS: 73564-TC